=== PATIENT | female | born 1960 | race African-American/Black ===

== ENCOUNTER 2017-05-20 05:22 | Day surgery (SDC) | payer MEDICAID ==
[~2017-05-20] VITALS: Ht 162.6 cm; Wt 62.6 kg
[~2017-05-20 05:22] MED LIST: ACET-2128 PO; ALBU6.7H INH; ALBU90AE IH; AMLO10TA80 PO; BACL20TA PO; BECL10.62 IH; BENZ100C86 PO; BUPR150T9 PO; CHOL100046 PO; IMIQ1CRE10 TP; NAPR-681 PO; PROM6.25 PO; TRAM50TA3 PO; VARE1TAB21 PO
[2017-05-20] MEDS ORDERED: LACTATED RINGERS 1,000 ML IV SCH (06:40)
[2017-05-20] MEDS ORDERED: BUPIVACAINE HCL/PF 0.5% (5MG/ML) 10ML ONE (06:59)
[2017-05-20] MEDS ORDERED: LIDOCAINE HCL/PF 1% 10 MG/ML 5ML VIAL ONE ×2 (06:59→07:34)
[2017-05-20] MEDS ORDERED: NORMAL SALINE 0.9% 10 ML SYR ONE (07:08)
[2017-05-20] MEDS ORDERED: METHYLENE BLUE 50 MG/10 ML AMP IV ONE (07:08)
[2017-05-20] MEDS ORDERED: SKIN ADHESIVE 0.7 GM EA TOP ONE (07:08)
[2017-05-20] MEDS ORDERED: BACITRACIN 50,000 UNITS/VIAL ONE (07:09)
[2017-05-20] MEDS ORDERED: IBUP-1653 PO (07:24)
[2017-05-20] MEDS ORDERED: SUCCINYLCHOLINE CHLORIDE 200MG/10ML VIAL IV ONE (07:34)
[2017-05-20] MEDS ORDERED: GLYCOPYRROLATE 0.2 MG/ML 2ML VIAL ONE (07:34)
[2017-05-20] MEDS ORDERED: FENTANYL CITRATE/PF 50MCG/ML 2ML VIAL ONE (07:34)
[2017-05-20] MEDS ORDERED: ROCURONIUM BROMIDE 10MG/ML VIAL 5ML IV ONE (07:34)
[2017-05-20] MEDS ORDERED: PROPOFOL 200MG/20ML VIAL IV ONE (07:34)
[2017-05-20] MEDS ORDERED: MIDAZOLAM HCL 2 MG/2 ML VIAL ONE (07:34)
[2017-05-20] MEDS ORDERED: CEFAZOLIN SODIUM 1000MG/VIAL ONE (07:34)
[2017-05-20] MEDS ORDERED: SODIUM CHLORIDE 0.9% 1,000 ML IV ONE (08:10)
[2017-05-20] MEDS ORDERED: MEPERIDINE HCL/PF 25MG/ML CPJ IV PRN (08:15)
[2017-05-20] MEDS: HYDROMORPHONE HCL/PF 2MG/ML CPJ IV PRN ×3 (09:19→09:48)
[2017-05-20 09:48] VITALS: BP 124/75
[2017-05-20] MEDS: ONDANSETRON HCL 4MG/2ML VIAL IV PRN ×2 (10:53→11:15)
== END 2017-05-20 11:25 | disposition home or self-care (01) ==
LOC: OR 05:22
PROVIDERS: ATTEND Specialist
DX: C50.912 Malignant neoplasm of unspecified site of left female breast (principal); I10 Essential (primary) hypertension; J45.909 Unspecified asthma, uncomplicated; G43.909 Migraine, unspecified, not intractable, without status migrainosus; Z79.899 Other long term (current) drug therapy
CPT/HCPCS: 19301; 88307; A4216; G0168; J0330; J0690; J1170; J2250; J2405; J3010; J3490; J7120; J2704; Q9968